=== PATIENT | male | born 2000 | race Hispanic/Latino ===

== ENCOUNTER 2021-10-18 16:00 | Emergency (ER) | payer MEDICAID ==
[2021-10-18] MEDS ORDERED: LORazepam 2 MG/ML VIAL IM ONE (18:06)
--- NOTE | 2021-10-18 20:08 | Emergency Department Report ---
ED General Adult HPI - General Chief complaint: Altered Mental Status Stated complaint: BEHAVIORAL EPISODE Time Seen by Provider: 10/18/21 16:46 Source: EMS Mode of arrival: Stretcher Limitations: No Limitations - History of Present Illness Initial comments: agitation and having outburst , home care and home health aides teacher reported that he might be having tooth pain , he is supposed to have a surgery on Monday at [facility] for dental procedure by dr Dillon Cavazos -: days(s) - Related Data Home Medications Medication Instructions Recorded Confirmed Last Taken Acetaminophen [Tylenol] 1,000 mg PO Q6HR 10/18/21 10/18/21 Unknown clonazePAM [KlonoPIN] 2 mg PO Q4HR 10/18/21 10/18/21 Unknown Allergies Allergy/AdvReac Type Severity Reaction Status Date / Time No Known Allergies Allergy Unverified 10/18/21 18:04 ED Review of Systems ROS: Stated complaint: BEHAVIORAL EPISODE Other details as noted in HPI ED Past Medical Hx - Past Medical History Previous Medical History?: No Additional medical history: Autism - Surgical History Past Surgical History?: No - Social History Smoking Status: Never Smoker - Medications Home Medications: Home Medications Medication Instructions Recorded Confirmed Last Taken Type Acetaminophen [Tylenol] 1,000 mg PO Q6HR 10/18/21 10/18/21 Unknown History clonazePAM [KlonoPIN] 2 mg PO Q4HR 10/18/21 10/18/21 Unknown History ED Physical Exam - General Limitations: No Limitations General appearance: alert, anxious, other (agittated restless ) - Head Head exam: Present: atraumatic, normocephalic - Eye Eye exam: Present: normal appearance - ENT ENT exam: Present: mucous membranes moist - Neck Neck exam: Present: normal inspection - Respiratory Respiratory exam: Present: normal lung sounds bilaterally. Absent: respiratory distress - Cardiovascular Cardiovascular Exam: Present: regular rate, normal rhythm. Absent: systolic murmur, diastolic murmur, rubs, gallop - GI/Abdominal GI/Abdominal exam: Present: soft, normal bowel sounds - Rectal Rectal exam: Present: deferred - Extremities Exam Extremities exam: Present: normal inspection - Back Exam Back exam: Present: normal inspection - Neurological Exam Neurological exam: Present: alert, oriented X3 - Psychiatric Psychiatric exam: Present: normal affect, normal mood - Skin Skin exam: Present: warm, dry, intact, normal color. Absent: rash ED Course Vital Signs 10/18/21 10/18/21 10/19/21 16:33 17:15 18:17 Temperature 98.2 F Pulse Rate 80 89 Respiratory 18 20 Rate Blood Pressure 135/65 Blood Pressure 126/74 [Left] O2 Sat by Pulse 99 96 99 Oximetry 10/19/21 10/20/21 10/20/21 23:14 01:32 10:43 Temperature 98.2 F Pulse Rate 89 85 Respiratory 16 20 17 Rate Blood Pressure Blood Pressure 126/74 114/65 [Left] O2 Sat by Pulse 99 99 Oximetry ED Medical Decision Making - Lab Data Result diagrams: 10/19/21 13:39 10/19/21 13:39 - Medical Decision Making pt is agitated , home care and home health aides teacher reported that he has tooth abscess and he was suposed to see DR Dirk Carranza on Monday in [facility] for procedure and she thinks hs is hurting tahts why he is agitated , spoek with dr Myla villalobos applications chemist for doctor cavazos, she reported that they r off today but tomorrow they will be able to get it done, , please call [facility] and ask for dr dirk carranza oral surgeon tomorrow to arrange for that Critical care attestation.: If time is entered above; I have spent that time in minutes in the direct care of this critically ill patient, excluding procedure time. ED Disposition Clinical Impression: Agitation, Behaviour problems, Autism Disposition: 01 HOME / SELF CARE / HOMELESS Is pt being admited?: No Does the pt Need Aspirin: No Condition: Stable Instructions: Living With Autism Spectrum Disorder Additional Instructions: Continue home medications. Follow-up with your doctor. Go to your dental appointment as scheduled. Return if symptoms worsen as indicated by your discharge instructions. Referrals: your, doctor [Other] - 3-5 Days TABITHA FERNANDES MD [Primary Care Provider] - 3-5 Days
--- NOTE | 2021-10-19 11:30 | Consultation ---
History of Present Illness - Reason for Consult Consult date: 10/19/21 Reason for consult: Mental health evaluation - History of Present Psychiatric Illness Per food processing chemist: Spoke with pts BMo, Deena Echavarria [phone] who reports that pt is experiencing tooth pain. His caregiver, Devi, couldnt handle him so she doesnt want him to go back. Per pts mother, pt is scheduled to get his teeth removed on Monday at [facility] with Dr. Carranza. States that pain is having behavioral issues as a result. Behaviors include breaking windows, pushing caregiver, and self-injurious behaviors. Reports that pt has lacerations to his head due to previous incident. States that pt was seen at [facility] a couple of days ago and was supposed to stay until the surgery, however, the hospital felt that he would be most comfortable at home. Reports that pt had a brain injury at age 4 and it is lumped with Autism. States that pt has been on mood stabilizers since age 6. Reports that pt has no functional communication and unable to control emotions. Reports that pt has not had episodes of aggression prior to exhibiting tooth pain. Pt is currently linked wit [facility]. Medications are unknown at this time. According to mother, pt is on many medications. States that pt has lived with Devi for 3 years. Pt has a representative phlebotomy services from [facility] [phone]. The patient is a 21 year old male with history of autism and TBI who presents to the ED for aggressive behavior due to tooth ache. The patient was seen today. He is calm, alert and oriented. No aggressive behavior reported. Reached Ms Gutierrez @ [phone] who states that they are in the process of finding placement for the patient. Attempted to reach Devi @ [phone] for patient's current medications. PAST PSYCHIATRIC HISTORY: PAST MEDICAL HISTORY: None reported or document Family Psychiatric History: None reported or documented SOCIAL HISTORY REVIEW OF SYSTEMS MENTAL STATUS EXAMINATION Diagnoses: Autism Treatment Plan DC 1013 Continue home meds Case management PSYCHOTHERAPY: Supportive psychotherapy provided MEDICAL: Per primary team DELIRIUM PRECAUTIONS: Please re-orient patient frequently, keep lights on during the day, and minimize benzodiazepines and opiates as these medications could worsen patient's confusion. SECURITY MONITOR: Per medical team DISPOSITION: Do not recommend acute psychiatric inpatient treatment. Will sign off. Thank you for the consult. Case staffed with Dr. Tran Medications and Allergies Allergies Allergy/AdvReac Type Severity Reaction Status Date / Time No Known Allergies Allergy Unverified 10/18/21 18:04 Home Medications Medication Instructions Recorded Confirmed Last Taken Type Acetaminophen [Tylenol] 1,000 mg PO Q6HR 10/18/21 10/18/21 Unknown History clonazePAM [KlonoPIN] 2 mg PO Q4HR 10/18/21 10/18/21 Unknown History Mental Status Exam - Vital signs Last Vital Signs Temp Pulse 80 10/18/21 16:33 Resp 18 10/18/21 16:33 BP 135/65 10/18/21 16:33 Pulse Ox 96 10/18/21 17:15 Results Result Diagrams: 10/19/21 13:39 10/19/21 13:39 All other labs normal.
--- NOTE | 2021-10-19 12:09 | Event Note ---
21-year-old autistic male presents with behavioral issues thought to be secondary to the dental pain. Patient is scheduled for dental surgery tomorrow. Case management called the dental office to confirm. They are unable to perform the surgery any sooner than scheduled. Patient was seen by mental health nurse practitioner who will provide meds to help calm patient down. Klonopin was ordered and first dose will be provided in the ED. Ultimate plan is to discharge patient back to where he resides with psychiatric medications with plan to follow-up for his surgery tomorrow as scheduled. Nurse states that patient intermittently lunges towards her Vitals requested If pt does not voluntarily take the Klonopin IM medications will be ordered 1:24p Patient did accept upon admission p.o. and IM medications were not needed. Apparently case management addended her note stating that automobile body repair chief refuses to take patient back to his current residence and they are trying to find emergency placement. Labs reordered since pt will be in ed until placement arranged. 4:43pm Most recent social work note reviewed. Apparently mom is planning to pick patient up and take him to check with Labs reviewed and no acute abnormalities noted. Urine was not collected prior to discharge. Patient does not appear to have an acute medical issue at this time and has been cleared by mental health. Discharge paperwork will be printed.
[2021-10-19] MEDS: ACETAMINOPHEN 500 MG TAB PO SCH (14:01)
[2021-10-19 14:22] LABS: BUN/Creatinine Ratio 12; Blood Urea Nitrogen 11 mg/dL (9-20); Hemolysis Index 13
[2021-10-19 14:30] LABS: Basophils # (Auto) 0.1 K/mm3 (0.0-0.1); Basophils % (Auto) 0.6 % (0.0-1.8); Eosinophils # (Auto) 0.1 K/mm3 (0.0-0.4); Eosinophils % (Auto) 0.8 % (0.0-4.3); Hemoglobin 16.1 gm/dl (11.8-15.2); Lymphocytes # (Auto) 1.6 K/mm3 (1.2-5.4); Lymphocytes % (Auto) 18.9 % (13.4-35.0); Mean Corpuscular HGB Conc 35 % (32-34); Mean Corpuscular Volume 93 fl (84-94); Monocytes # (Auto) 0.7 K/mm3 (0.0-0.8); Monocytes % (Auto) 7.9 % (0.0-7.3); Platelet Count 398 K/mm3 (140-440); Red Blood Count 4.95 M/mm3 (3.65-5.03); Red Cell Distribution Width 13.3 % (13.2-15.2)
[2021-10-19] MEDS ORDERED: levETIRAcetam 1000 MG/NS 0.75% 1,000 MG/100 ML BAG IV ONE (20:46)
--- NOTE | 2021-10-19 20:50 | Event Note ---
Patient was up for discharge and was taking a shower. His parents are in the department at with pt at time of episode. He apparently fell face forward and had seizure-like activity and was altered upon my arrival to the scene. Patient has a laceration to the left lateral lip. Mom is requesting that patient be transferred to [facility] stating that he has a bed waiting for him. It is unclear if patient has a history of seizures. Mom states that patient is on Depakote for behavioral issues and possibly had a seizure in the past however, was also noted stating that this is his first grand mal seizure. Additional labs ordered include magnesium and Depakote level. EKG and Accu-Chek requested. CT head, cervical spine, and facial bones ordered. IV Keppra ordered. Patient will have to be signed out to oncoming provider to follow-up results and for laceration repair and possible transfer via ambulance to [facility]
--- NOTE | 2021-10-19 21:28 | Cat Scan Report ---
CT head/brain wo con INDICATION: seizure, head injury. TECHNIQUE: Routine CT head. All CT scans at this location are performed using CT dose reduction for A TRISTAN by means of automated exposure control. COMPARISON: None. FINDINGS: Intracranial: De-white matter differentiation is maintained. No intracranial hemorrhage. No extra a xial collection. No hydrocephalus. No herniation. Sinuses: Paranasal sinuses and mastoid air cells are essentially clear. Orbits: Globes are intact. Calvarium: No acute fracture. IMPRESSION: 1. No acute intracranial abnormality. Signer Name: Jose Angel Arana MD Signed: 10/19/2021 9:23 PM Workstation Name: [id number]
--- NOTE | 2021-10-19 21:57 | Cat Scan Report ---
CT facial bones wo con INDICATION: seizure, head injury. TECHNIQUE: CT face. All CT scans at this location are performed using CT dose reduction for ALARA by means of automated exposure control. COMPARISON: None. FINDINGS: Facial bones: Mildly displaced left zygomatic arch and through the left zygoma. Mildly displaced left anterior, lateral and posterior maxillary sinus wall fractures. Mandibular condyles are well-seated within the glenoid fossa of the temporal mandibular joint. Sinuses: Air fluid level in the left maxillary sinus. Orbits: Globes are intact. Additional findings:No other significant abnormality. IMPRESSION: 1. Left zygomatic arch and through the left zygoma. 2. Mildly displaced left anterior, lateral and posterior maxillary sinus wall fractures. Signer Name: Jose Angel Arana MD Signed: 10/19/2021 9:52 PM Workstation Name: [id number]
--- NOTE | 2021-10-19 21:59 | Cat Scan Report ---
CT cervical spine wo con INDICATION: seizure, head injury. TECHNIQUE: Axial CT images of the cervical spine were obtained. Sagittal and coronal reformatted images were pro duced. All CT scans at this location are performed using CT dose reduction for ALARA by means of auto mated exposure control. COMPARISON: None available. FINDINGS: ALIGNMENT: Normal alignment. VERTEBRAE: No fracture. Vertebral body heights are preserved. C1 and C2 are congruent. SPONDYLOSIS: No significant spondylosis. SOFT TISSUES: No significant soft tissue abnormality. ADDITIONAL FINDINGS: No significant additional findings. IMPRESSION: 1. No fracture of the cervical spine. Signer Name: Jose Angel rAana MD Signed: 10/19/2021 9:55 PM Workstation Name: [id number]
[2021-10-19] MEDS ORDERED: ONDANSETRON 4 MG/2 ML INJ IV ONE (22:45)
[2021-10-19] MEDS ORDERED: MORPHINE 4 MG/1 ML INJ IV ONE (22:45)
[2021-10-19] MEDS ORDERED: LORazepam 2 MG/ML VIAL IM ONE (23:45)
--- NOTE | 2021-10-20 00:58 | Event Note ---
Date: 10/20/21 I received a report from my colleagues Dr. Vaughan that patient was in his shower and had a seizure fell on his left face. I reviewed patient CT of the face and showed that he has a left zygomatic arch and maxillary sinus fracture. CT brain and CT cervical spine is unremarkable. Patient received Keppra and Ativan. Patient scheduled to have oral surgery this morning. I contacted [facility] transfer center and informed that patient has been accepted by Dr. Duggan. I noticed patient has a 1 cm laceration to his left upper lip. I intended to suture the wound however patient is agitated and I believe patient will better suture under general anesthesia. family also want him to have suture done under anesthesia when he will go for his surgery this morning. Patient transferred to [facility] in stable condition. After patient is already been boarded on the EMS stretcher having [facility], we received a call from [facility] stating that patient surgery has been canceled and patient should not come to the [facility] now and to transfer should be counseled. I spoke to several doctors on the transfer line try to find out why the surgery has been canceled however they have no answer and they stated that they would know in the morning.
[2021-10-20] MEDS ORDERED: MORPHINE 2 MG/1 ML INJ IV ONE (02:48)
[2021-10-20] MEDS ORDERED: SODIUM CHLORIDE 0.9% 1000 ML 1,000 ML IV ONE (02:49)
[2021-10-20] MEDS ORDERED: MIDAZOLAM 5 MG/5 ML INJ MDV IV ONE (03:30)
[2021-10-20] MEDS ORDERED: MORPHINE 4 MG/1 ML INJ IV ONE (05:05)
--- NOTE | 2021-10-20 09:08 | Electrocardiograph Report ---
[facility] Test Date: 2021-10-20 Test Time: 00:51:40 Pat Name: DEONDRE GRANADOS Department: Room: Gender: M Apron Worker: ANIVAL : 2000 Requested By: JOEY RODRÍGUEZ Order Number: [id number] Reading MD: Rohit Evangelista Measurements Intervals [place] Rate: 105 P: 61 [place]: 135 QRS: 60 QRSD: 77 T: 68 QT: 321 QTc: 424 Interpretive Statements Sinus tachycardia ST elev, probable normal early repol pattern No previous ECG available for comparison Electronically Signed On 10-20-2021 9:07:46 EDT by Rohit Evangelista
[2021-10-20] MEDS: ACETAMINOPHEN 500 MG TAB PO SCH (10:12)
--- NOTE | 2021-10-20 12:23 | Event Note ---
Chart and vital signs reviewed Patient initially was to be discharged with parents to go to show up for admission for scheduled oral surgery. Patient had a seizure, hit his face, sustained facial fractures resulting in oral surgery or postponing the procedure. Case management has been communicating with the oral surgeon to determine treatment plan. I have added Keppra 500 mg twice daily for seizure prophylaxis (pt is not currently taking depakote) to current medications. Dipso pending
[2021-10-20] MEDS ORDERED: ZIPRASIDONE MESYLATE 20 MG VIAL IM ONE (18:46)
[2021-10-20] MEDS ORDERED: LORazepam 2 MG/ML VIAL IM ONE (18:46)
[2021-10-20] MEDS: levETIRAcetam 500 MG TAB PO SCH (18:55)
[2021-10-21] MEDS: ACETAMINOPHEN 500 MG TAB PO SCH ×4 (08:41→22:22)
[2021-10-21] MEDS ORDERED: ZIPRASIDONE MESYLATE 20 MG VIAL IM ONE (12:05)
[2021-10-21] MEDS: levETIRAcetam 500 MG TAB PO SCH ×3 (12:15→21:51)
--- NOTE | 2021-10-21 19:48 | Event Note ---
Date: 10/21/21 Rounded on the patient in the emergency department. I spoke with the patient's family and patient. Patient is pending transfer to [facility] for oral surgery. He also has some facial fractures that he suffered after hitting his face. Patient also has a laceration to the left upper lip that crosses the mary border. The patient's family did want this laceration closed and the plan was to close it when it initially happened however patient was to be transferred and the plan was for the laceration to be completed under general anesthesia. The patient unfortunately suffered this laceration on Monday at 8:30 PM. Unfortunately it is now almost 48 hours after so I cannot close this laceration primarily as more than 24 hours have passed and this will likely have to be closed in the future possibly by plastic surgery. The patient's family are concerned that the transfer to [facility] is no longer happening. I have reviewed the charting from previous physicians. Apparently patient is awaiting acceptance show a as there initially were accepted and the transfer was canceled. Patient is stable being giving meds and we will continue to monitor. We are contacting [facility] transfer line to see where the patient status is for transfer. I did speak to the [facility] transfer line. At this time he did say that Dr. Rogers has reviewed the images but state the patient is scheduled for outpatient surgery but they are not accepting the patient at this time. I believe at this time it may be best to reassess the situation in the morning.
[2021-10-21] MEDS ORDERED: ACETAMINOPHEN 325 MG TAB PO PRN (19:52)
[2021-10-21] MEDS ORDERED: HYDROcodone/ACETAMINOPHEN 5-325 MG TAB PO ONE (19:53)
[2021-10-21] MEDS ORDERED: AMOXICILLIN/K CLAV 875/125MG TAB PO ONE (19:54)
[2021-10-21] MEDS ORDERED: WATER FOR INJ Sterile (PF) 10 ML ONE (20:57)
[2021-10-21] MEDS: ZIPRASIDONE MESYLATE 20 MG VIAL IM PRN (21:03)
[2021-10-22] MEDS ORDERED: WATER FOR INJ Sterile (PF) 10 ML ONE (02:20)
[2021-10-22] MEDS: ZIPRASIDONE MESYLATE 20 MG VIAL IM PRN (02:32)
[2021-10-22] MEDS: ACETAMINOPHEN 500 MG TAB PO SCH (06:34)
[2021-10-22] MEDS ORDERED: ZIPRASIDONE MESYLATE 20 MG VIAL IM ONE (12:45)
--- NOTE | 2021-10-22 12:45 | Event Note ---
Date: 10/22/21 I was informed by this patient bedside nurse that he became aggressive and needing something to calm him down. Pt has a standing order of Nima so I told them to go ahead and administer it. Will continue to monitor this patient who is awaiting placement/transfer.
[2021-10-22] MEDS: levETIRAcetam 500 MG TAB PO SCH ×2 (13:03→22:54)
[2021-10-23] MEDS: ZIPRASIDONE MESYLATE 20 MG VIAL IM PRN ×2 (01:17→07:35)
[2021-10-23] MEDS ORDERED: WATER FOR INJ Sterile (PF) 10 ML ONE (07:30)
--- NOTE | 2021-10-23 08:13 | Event Note ---
Date: 10/23/21 Patient seen and examined. He is laying on his side, breathing spontaneously and moving 4 extremities. Nursing team reports that the patient is occasionally agitated, and occasionally hyperactive. They are requesting as needed medications to assist with agitation. These have been ordered. Awaiting case management arrangement of appropriate and safe social disposition. Laboratory studies are reviewed and appreciated. Patient went to the bathroom this morning without difficulty. He remains medically suitable for case management disposition Vital Signs 10/18/21 10/18/21 10/19/21 16:33 17:15 18:17 Temperature 98.2 F Pulse Rate 80 89 Respiratory 18 20 Rate Blood Pressure 135/65 Blood Pressure 126/74 [Left] O2 Sat by Pulse 99 96 99 Oximetry 10/19/21 10/20/21 10/20/21 23:14 01:32 10:43 Temperature 98.2 F Pulse Rate 89 85 Respiratory 16 20 17 Rate Blood Pressure Blood Pressure 126/74 114/65 [Left] O2 Sat by Pulse 99 99 Oximetry 10/21/21 10/21/21 10/21/21 10:00 17:29 17:30 Temperature Pulse Rate 78 71 Respiratory 16 18 Rate Blood Pressure Blood Pressure 110/78 118/62 [Left] O2 Sat by Pulse 98 100 100 Oximetry 10/21/21 10/21/21 10/21/21 19:34 20:40 21:02 Temperature 98.5 F 97.6 F Pulse Rate 68 99 H Respiratory 16 18 18 Rate Blood Pressure Blood Pressure 148/93 116/74 [Left] O2 Sat by Pulse 99 98 Oximetry 10/21/21 10/21/21 10/21/21 21:50 22:02 22:22 Temperature Pulse Rate Respiratory 18 18 18 Rate Blood Pressure Blood Pressure [Left] O2 Sat by Pulse Oximetry 10/21/21 10/22/21 10/22/21 22:50 06:34 06:45 Temperature 97.8 F Pulse Rate 81 Respiratory 18 18 20 Rate Blood Pressure Blood Pressure 138/82 [Left] O2 Sat by Pulse 96 Oximetry 10/22/21 10/23/21 10/23/21 21:00 03:28 07:19 Temperature 98.4 F Pulse Rate 58 L 87 Respiratory 16 Rate Blood Pressure Blood Pressure 125/70 159/90 [Left] O2 Sat by Pulse 98 97 Oximetry
[2021-10-23] MEDS: LORazepam 2 MG/ML VIAL IM PRN ×4 (09:21→20:36)
[2021-10-23] MEDS: HALOPERIDOL LACTATE 5 MG/1 ML INJ IM PRN ×2 (09:22→15:39)
[2021-10-23] MEDS: levETIRAcetam 500 MG TAB PO SCH ×2 (11:21→22:52)
[2021-10-24] MEDS: LORazepam 2 MG/ML VIAL IM PRN ×5 (00:21→23:57)
[2021-10-24] MEDS: levETIRAcetam 500 MG TAB PO SCH (10:17)
--- NOTE | 2021-10-24 11:51 | Event Note ---
Date: 10/24/21 Patient examined and seen by me. Patient is resting in his bed with no problem. Patient had periodic episodes of agitation and require medication. Patient received Ativan approximately 30 minutes prior to my exam. Waiting for case management placement.
[2021-10-24] MEDS: HALOPERIDOL LACTATE 5 MG/1 ML INJ IM PRN ×2 (16:29→22:41)
[2021-10-25] MEDS: HALOPERIDOL LACTATE 5 MG/1 ML INJ IM PRN ×2 (09:24→19:08)
[2021-10-25] MEDS: ACETAMINOPHEN 500 MG TAB PO SCH ×2 (09:43→13:49)
[2021-10-25] MEDS: LORazepam 2 MG/ML VIAL IM PRN ×3 (10:42→19:08)
--- NOTE | 2021-10-25 11:32 | Event Note ---
Date: 10/25/21 No overnight issues except for periodic agitation. Patient required a sitter. Vital signs stable. Waiting for case management placement.
[2021-10-25] MEDS: levETIRAcetam 500 MG TAB PO SCH (11:44)
[2021-10-26] MEDS: LORazepam 2 MG/ML VIAL IM PRN ×2 (10:43→19:22)
[2021-10-26] MEDS: HALOPERIDOL LACTATE 5 MG/1 ML INJ IM PRN ×2 (10:43→19:22)
[2021-10-26] MEDS: levETIRAcetam 500 MG TAB PO SCH ×2 (10:43→13:00)
--- NOTE | 2021-10-26 17:25 | Emergency Department Report ---
Blank Doc - Documentation Documentation: 21-year-old male still awaiting placement by case management. Declined by [facility] for transfer.
[2021-10-27] MEDS: LORazepam 2 MG/ML VIAL IM PRN ×2 (04:59→14:32)
[2021-10-27] MEDS: HALOPERIDOL LACTATE 5 MG/1 ML INJ IM PRN ×2 (05:00→14:32)
[2021-10-27] MEDS: ACETAMINOPHEN 500 MG TAB PO SCH (09:34)
[2021-10-27] MEDS: levETIRAcetam 500 MG TAB PO SCH (09:35)
--- NOTE | 2021-10-27 14:08 | Event Note ---
Date: 10/27/21 Reconsulted to see this patient by ER doc. Says caregiver is willing to take the patient back since he has been calm, and has showed not sign of aggression. He says the caregiver wanted the patient on the medication he was getting in the hospital. I did see the patient today, he is calm. The nurse is at bedside. She says the patient has not shown any sign of aggression. Will continue haldol but change to po. The patient should follow up with outpatient psych in 7 to 14 days upon discharge from ER.
--- NOTE | 2021-10-27 14:54 | Emergency Department Report ---
Blank Doc - Documentation Documentation: Patient to be discharged home with caregiver. Patient has been given prescrip tion for Haldol that have been written by the psychiatry team. Patient is to follow-up with his psychiatrist/mental health as well as [facility].
[2021-10-27 15:13] VITALS: BP 145/90
== END 2021-10-27 15:12 | disposition home or self-care (01) ==
LOC: EEVIPCON 16:00 → ED 16:00
DX: R45.1 Restlessness and agitation (principal); F84.0 Autistic disorder; F69 Unspecified disorder of adult personality and behavior
CPT/HCPCS: 36415; 70450; 70486; 72125; 80048; 80164; 82962; 83735; 85025; 96361; 96365; 96372; 96375; 96376; 99285; J0690; J1630; J1953; J2060; J2250; J2270; J2405; J3486; J7030; 80320; G0480